=== PATIENT | female | born 1965 | race Caucasian/White ===

== ENCOUNTER 2019-08-24 15:05 | Emergency (ER) | payer SELFPAY ==
--- NOTE | 2019-08-24 16:14 | RAD REPORT ---
EXAM DESCRIPTION: RAD - Hand Right 3 View - 08/24/2019 4:01 pm CLINICAL HISTORY: Pain;Swelling, no trauma history detailed COMPARISON: No comparisons FINDINGS: No fracture is identified. There is no dislocation or periosteal reaction noted. Minimal subluxation or joint laxity at the first MCP joint. No bony avulsion or indication for an acute ligam entous injury. No history to indicate localizing symptoms at this joint. No significant degenerative change. No erosive or destructive component identifiable. No air or foreign body in the soft tissues. IMPRESSION: As detailed above, no acute bone or joint finding identifiable.
[2019-08-24 17:17] LABS: Absolute Lymphocytes (CBC) 1.4 K/uL (0.7-4.9); Basophils % 1.3 % (0-1.3); Hematocrit 37.9 % (36.0-45.0); Lymphocytes % 23.3 % (15.3-44.8); MPV 7.3 fL (7.6-11.3); RBC Red Blood Cell Count 4.24 M/uL (3.86-4.86)
[2019-08-24 17:28] LABS: Potassium 3.2 mmol/L (3.5-5.1); Uric Acid 4.3 mg/dL (2.6-6.0)
--- NOTE | 2019-08-24 17:38 | ER ---
Nurse's Notes [facility] Name: Olivia Rosario Age: 54 yrs Sex: Female : 1965 Arrival Date: 08/24/2019 Time: 15:09 Bed 2 Private MD: Diagnosis: Pain in right hand Presentation: 08/23 15:21 Chief complaint: Patient states: right hand pain and swelling that began on Wednesday. Pt aa5 denies known injury. 15:21 Coronavirus screen: Proceed with normal triage. Patient denies a cough. Patient denies aa5 shortness of breath or difficulty breathing. Patient denies measured and/or subjective temperature greater than 100.4F prior to today's visit. Patient denies travel on a cruise ship or to a country the [facility] currently lists as an affected area. Patient denies contact with known and/or suspected case of COVID-19. Ebola Screen: Patient negative for fever greater than or equal to 101.5 degrees Fahrenheit, and additional compatible Ebola Virus Disease symptoms. Initial Sepsis Screen: Does the patient meet any 2 criteria? No. Patient's initial sepsis screen is negative. Does the patient have a suspected source of infection? No. Patient's initial sepsis screen is negative. Risk Assessment: Do you want to hurt yourself or someone else? Patient reports no desire to harm self or others. Onset of symptoms was August 2019. 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 - Social history:: Smoking status: Patient/guardian denies using tobacco, but has a distant history of tobacco abuse. Screenin:27 Abuse screen: Denies threats or abuse. Nutritional screening: No deficits noted. aa5 Tuberculosis screening: No symptoms or risk factors identified. Fall Risk None identified. Assessment: 15:28 General: Appears uncomfortable, Behavior is calm, cooperative. Pain: Complains of pain aa5 in right hand Pain does not radiate. Pain currently is 7 out of 10 on a pain scale. Quality of pain is described as sharp, tender, Pain began 2-3 days ago. Is continuous. Neuro: Level of Consciousness is awake, alert, obeys commands, Oriented to person, place, time, situation. Cardiovascular: Patient's skin is warm and dry. Respiratory: Airway is patent Respiratory effort is even, unlabored, Respiratory pattern is regular, symmetrical. GI: No signs and/or symptoms were reported involving the gastrointestinal system. : No signs and/or symptoms were reported regarding the genitourinary system. EENT: No signs and/or symptoms were reported regarding the EENT system. Derm: Skin is pink, warm \T\ dry. Musculoskeletal: Range of motion: intact in all extremities, Swelling present in right hand. 16:36 Reassessment: Patient appears in no apparent distress at this time. Patient and/or ca1 family updated on plan of care and expected duration. Pain level reassessed. Patient is alert, oriented x 3, equal unlabored respirations, skin warm/dry/pink. Vital Signs: 15:21 BP 97 / 63; Pulse 66; Resp 18 S; Temp 97.8(TE); Pulse Ox 100% on R/A; Weight 81.65 kg aa5 (R); Height 5 ft. 5 in. (165.10 cm) (R); Pain 7/10; 16:36 BP 109 / 53; Pulse 66; Resp 17 S; Pulse Ox 98% on R/A; ca1 15:21 Body Mass Index 29.95 (81.65 kg, 165.10 cm) aa5 ED Course: 15:09 Patient arrived in ED. ag5 15:21 Kathryn Renae, RN is Primary Nurse. aa5 15:21 Arm band placed on. aa5 15:21 Patient has correct armband on for positive identification. Bed in low position. Call aa5 light in reach. Side rails up X 1. 15:24 Travis Guillory PA is PHCP. jr8 15:24 Marin Moore MD is Attending Physician. jr8 15:26 Triage completed. aa5 16:01 XRAY Hand RIGHT 3 View In Process Unspecified. EDMS 16:35 No provider procedures requiring assistance completed. Initial lab(s) drawn, by yassine avendano sent to lab. Patient maintains SpO2 saturation greater than 95% on room air. 17:36 Vladislav Oliva MD is Referral Physician. 8 Administered Medications: No medications were administered Outcome: 17:37 Discharge ordered by . ney 19:01 Patient left the ED. ls4 Signatures: Dispatcher [employer] EDMS Kathryn Renae RN RN aa5 Travis Guillory PA PA jr8 Ida Jain RN RN ls4 Kari Soares RN RN [facility] Joshua Lau 5 Corrections: (The following items were deleted from the chart) 15:45 15:21 Acuity: DIA 4 aa5 aa5
--- NOTE | 2019-08-24 17:38 | EDPHYS ---
Physician Documentation [facility] Name: Olivia Rosario Age: 54 yrs Sex: Female : 1965 Arrival Date: 08/24/2019 Time: 15:09 Bed 2 Private MD: ED Physician Marin Moore HPI: 08/23 17:14 This 54 yrs old Female presents to ER via Ambulatory with complaints of Hand jr8 Swelling. 17:14 The patient or guardian reports pain, swelling, tenderness. The complaints affect the jr8 MCP of right thumb and CMC of right thumb. Onset: The symptoms/episode began/occurred gradually, 2 day(s) ago. Modifying factors: The symptoms are alleviated by nothing, the symptoms are aggravated by movement. Associated signs and symptoms: The patient has no apparent associated signs or symptoms. The patient has not experienced similar symptoms in the past. The patient has been recently seen by a physician:. denies trauma. Stated that it started to hurt and then swell. Consistent for past couple days and not going away . 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 - Social history:: Smoking status: Patient/guardian denies using tobacco, but has a distant history of tobacco abuse. ROS: 17:14 Eyes: Negative for injury, pain, redness, and discharge, ENT: Negative for injury, jr8 pain, and discharge, Neck: Negative for injury, pain, and swelling, Cardiovascular: Negative for chest pain, palpitations, and edema, Respiratory: Negative for shortness of breath, cough, wheezing, and pleuritic chest pain, Abdomen/GI: Negative for abdominal pain, nausea, vomiting, diarrhea, and constipation, Back: Negative for injury and pain, Skin: Negative for injury, rash, and discoloration, Neuro: Negative for headache, weakness, numbness, tingling, and seizure. 17:14 MS/extremity: Positive for pain, swelling, tenderness, of the CMC of right thumb and MCP of right thumb. Exam: 17:14 Eyes: Pupils equal round and reactive to light, extra-ocular motions intact. Lids and jr8 lashes normal. Conjunctiva and sclera are non-icteric and not injected. Cornea within normal limits. Periorbital areas with no swelling, redness, or edema. ENT: Nares patent. No nasal discharge, no septal abnormalities noted. Tympanic membranes are normal and external auditory canals are clear. Oropharynx with no redness, swelling, or masses, exudates, or evidence of obstruction, uvula midline. Mucous membranes moist. Neck: Trachea midline, no thyromegaly or masses palpated, and no cervical lymphadenopathy. Supple, full range of motion without nuchal rigidity, or vertebral point tenderness. No Meningismus. Cardiovascular: Regular rate and rhythm with a normal S1 and S2. No gallops, murmurs, or rubs. Normal PMI, no JVD. No pulse deficits. Respiratory: Lungs have equal breath sounds bilaterally, clear to auscultation and percussion. No rales, rhonchi or wheezes noted. No increased work of breathing, no retractions or nasal flaring. Abdomen/GI: Soft, non-tender, with normal bowel sounds. No distension or tympany. No guarding or rebound. No evidence of tenderness throughout. Back: No spinal tenderness. No costovertebral tenderness. Full range of motion. Skin: Warm, dry with normal turgor. Normal color with no rashes, no lesions, and no evidence of cellulitis. Neuro: Awake and alert, GCS 15, oriented to person, place, time, and situation. Cranial nerves II-XII grossly intact. Motor strength 5/5 in all extremities. Sensory grossly intact. Cerebellar exam normal. Normal gait. 17:14 Musculoskeletal/extremity: Extremities: grossly normal except: noted in the CMC of right thumb and MCP of right thumb: decreased ROM, pain, swelling, tenderness, ROM: intact in all extremities, full active range of motion, full passive range of motion, limited active range of motion due to pain, limited passive range of motion due to pain, Circulation is intact in all extremities. Sensation intact. No erythema or warmth to affected area . Vital Signs: 15:21 BP 97 / 63; Pulse 66; Resp 18 S; Temp 97.8(TE); Pulse Ox 100% on R/A; Weight 81.65 kg aa5 (R); Height 5 ft. 5 in. (165.10 cm) (R); Pain 7/10; 16:36 BP 109 / 53; Pulse 66; Resp 17 S; Pulse Ox 98% on R/A; ca1 15:21 Body Mass Index 29.95 (81.65 kg, 165.10 cm) aa5 MDM: 15:34 Patient medically screened. jr8 17:32 Data reviewed: vital signs, nurses notes, lab test result(s), radiologic studies, and jr8 as a result, I will discharge patient. Data interpreted: Pulse oximetry: on room air is 98 %. Interpretation: normal. Counseling: I had a detailed discussion with the patient and/or guardian regarding: the historical points, exam findings, and any diagnostic results supporting the discharge/admit diagnosis, lab results, radiology results, the need for outpatient follow up, a orthopedic surgeon, to return to the emergency department if symptoms worsen or persist or if there are any questions or concerns that arise at home. 17:40 ED course: No current pain prescriptions on [place] [employer] listed. Low likely [place] of abuse .jr8 08/23 15:36 Order name: Uric Acid; Complete Time: 17:32 jr8 08/23 15:36 Order name: CBC with Diff; Complete Time: 17:24 jr8 08/23 15:36 Order name: XRAY Hand RIGHT 3 View; Complete Time: 16:43 jr8 08/23 15:36 Order name: Basic Metabolic Panel; Complete Time: 17:32 jr8 Administered Medications: No medications were administered Disposition: 08/24/19 17:37 Discharged to Home. Impression: Pain in right hand. - Condition is Stable. - Discharge Instructions: Arthritis. - Prescriptions for Tylenol- Codeine #3 300-30 mg Oral Tablet - take 2 tablets by ORAL route every 6 hours As needed; 20 tablet. Medrol (Vladislav) 4 mg Oral Tablets, Dose Pack - take 1 tablet by ORAL route as directed - follow package instructions; 1 packet. - Medication Reconciliation Form, Thank You Letter, Antibiotic Education, Prescription Opioid Use form. - Follow up: Vladislav Oliva MD; When: 7 - 10 days; Reason: If symptoms return, Recheck today's complaints, Continuance of care, Re-evaluation by your physician. - Problem is new. - Symptoms have improved. Addendum: 08/28/2019 10:12 Co-signature as Attending Physician, Marin Moore MD I agree with the assessment and k dr plan of care. Signatures: Dispatcher [employer] EDMS Marin Moore MD MD [facility] Kathryn Renae RN RN aa5 Travis Guillory PA PA jr8 Ida Jain, MIKY RN ls4 Corrections: (The following items were deleted from the chart) 08/23 17:24 17:14 Musculoskeletal/extremity: Extremities: grossly normal except: noted in the CMC jr8 of right thumb and MCP of right thumb: decreased ROM, pain, swelling, tenderness, ROM: intact in all extremities, full active range of motion, full passive range of motion, limited active range of motion due to pain, limited passive range of motion due to pain, Circulation is intact in all extremities. Sensation intact. jr8 19:01 17:37 08/24/2019 17:37 Discharged to Home. Impression: Pain in right hand. Condition is ls4 Stable. Forms are Medication Reconciliation Form, Thank You Letter, Antibiotic Education, Prescription Opioid Use. Follow up: Vladislav Oliva; When: 7 - 10 days; Reason: If symptoms return, Recheck today's complaints, Continuance of care, Re-evaluation by your physician. Problem is new. Symptoms have improved. jr8
[2019-08-24 19:06] VITALS: TEMP 97.8
[2019-08-24 19:07] VITALS: BP 109/53; O2SAT 98
== END 2019-08-24 19:01 | disposition home or self-care (01) ==
LOC: ER 15:05
DX: M79.641 Pain in right hand (principal); I10 Essential (primary) hypertension; Z88.8 Allergy status to other drugs, medicaments and biological substances
CPT/HCPCS: 36415; 80048; 84550; 85025; 99284